=== PATIENT | female | born 2000 | race Two or more races ===

== ENCOUNTER 2019-01-19 14:01 | Emergency (ER) | payer SELFPAY ==
[~2019-01-19] VITALS: Ht 162.6 cm; Wt 80.0 kg
[~2019-01-19 14:01] MED LIST: HYDR-3240 PO
[2019-01-19] MEDS ORDERED: ACETAMINOPHEN 500 MG TABLET PO ONE (14:30)
[2019-01-19] MEDS ORDERED: SODIUM CHLORIDE FLUSH 10ML SYR IVF ONE (14:30)
[2019-01-19] MEDS ORDERED: SODIUM CHLORIDE 0.9% 1,000ML IVBOLUS ONE ×2 (14:30→16:00)
--- NOTE | 2019-01-19 14:48 | NUR ---
late entry for 1443 pt to room at this time
--- NOTE | 2019-01-19 14:51 | NUR ---
18 Y/O FEMALE PRESENTS TO ED WITH C/O FEVER. PT STATES "I HAD MY GALL BLADDER OUT YESTERDAY AND HAVE HAD FEVERS SINCE THIS MORNING. I HAVEN'T TAKEN ANYTHING FOR THEM. IT GOT TO 103." NO C/O N/V/D, TRAUMA. PT PLACED ON CONT PULSE OX, NIBP. FAMILY BEDSIDE.
[2019-01-19] MEDS ORDERED: MORPHINE SULFATE 4 MG/ML, 1ML ONE ×2 (15:12→18:03)
[2019-01-19] MEDS ORDERED: KETOROLAC 30 MG/1 ML ONE (15:12)
[2019-01-19 15:16] LABS: BASOPHILS # (AUTO) 0.01 x10^3/uL (0-0.3); BASOPHILS % (AUTO) 0 % (0-1); EOSINOPHILS % (AUTO) 0 % (1-7); LYMPHOCYTES % (AUTO) 6 % (22-44); MD NO; MEAN CORPUSCULAR HEMOGLOBIN 31.3 pg (27.0-34.8); MEAN CORPUSCULAR HGB CONC 33.7 g/dL (32.4-35.8); MEAN CORPUSCULAR VOLUME 92.9 fL (80-100); MEAN PLATELET VOLUME 9.7 fL (7.4-10.4); MONOCYTES # (AUTO) 0.57 x10^3/uL (0-1.4); MONOCYTES % (AUTO) 6 % (2-9); NEUTROPHILS # (AUTO) 8.78 x10^3/uL (1.8-8.0); NEUTROPHILS % (AUTO) 88 % (42-75); PLATELET COUNT 200 x10^3/uL (130-400); RED BLOOD COUNT 3.82 x10^6/uL (3.82-5.3); RED CELL DISTRIBUTION WIDTH 12.7 % (9.6-15.2)
[2019-01-19 15:26] LABS: ALANINE AMINOTRANSFERASE 74 U/L (12-78); ALBUMIN 3.2 g/dL (3.4-5.0); ANION GAP 10 mmol/L (5-15); CALCIUM 8.1 mg/dL (8.5-10.1); CHLORIDE 105 mmol/L (98-107); CREATININE 0.85 mg/dL (0.55-1.02)
[2019-01-19] MEDS ORDERED: morphine SULFATE 10 MG/ML, 1ML IVPush ONE (15:30)
[2019-01-19] MEDS ORDERED: KETOROLAC 30 MG/1 ML IVPush ONE (15:30)
[2019-01-19 15:31] LABS: ALKALINE PHOSPHATASE 138 U/L (45-117); BILIRUBIN,TOTAL 0.5 mg/dL (0.2-1.0)
--- NOTE | 2019-01-19 15:51 | NUR ---
PT STATES SHE FEELS BETTER. NO ACUTE DISTRESS NOTED. REASSESSED TEMP, 99.8. MOTHER BEDSIDE.
--- NOTE | 2019-01-19 16:08 | NUR ---
PT AMBULATORY WITH STEADY GAIT TO BATHROOM. PT PROVIDED SAMPLE. NO ACUTE DISTRESS NOTED.
[2019-01-19 16:25] LABS: MICROSCOPIC AUTO
[2019-01-19 16:27] LABS: CULTURE INDICATED? YES
--- NOTE | 2019-01-19 17:04 | NUR ---
pt ambulatory with steady gait to bathroom.
--- NOTE | 2019-01-19 17:09 | NUR ---
PT AMBULATORY WITH STEADY GAIT BACK FROM BATHROOM. FAMILY BEDSIDE. NO ACUTE DISTRESS NOTED.
--- NOTE | 2019-01-19 17:55 | NUR ---
pt states she is having abd pain and feeling "shaky" again. edmd bedside speaking with pt.
[2019-01-19] MEDS ORDERED: MORPHINE SULFATE 4 MG/ML, 1ML IVPush ONE (18:00)
--- NOTE | 2019-01-19 18:10 | NUR ---
MEDICATIONS ADMINISTERED PER ORDER. FAMILY BEDSIDE. NO ACUTE DISTRESS NOTED. NO NEEDS REQUESTED AT THIS TIME.
--- NOTE | 2019-01-19 18:22 | NUR ---
PT OUT OF ROOM TO IMAGING.
[2019-01-19] MEDS ORDERED: OMNIPAQUE 350 MG/ML, 100ML BOTTLE ONE (18:40)
--- NOTE | 2019-01-19 19:02 | NUR ---
bedside report to MARY Chao
--- NOTE | 2019-01-19 19:10 | NUR ---
REPORT FROM LEONOR HERNANDEZ. PT RESTING WITH MOM AT BEDSIDE. PT HAS NO NEEDS AT THIS TIME. CALL LIGHT IN REACH
[2019-01-19] MEDS ORDERED: HYDROcodone/APAP 5/325 TABLET PO ONE (19:30)
[2019-01-19] MEDS ORDERED: ACETAMINOPHEN 325 MG TABLET ONE (19:45)
[2019-01-19] MEDS ORDERED: HYDROcodone/APAP 5/325 TABLET ONE (19:45)
[2019-01-19 19:49] VITALS: BP 109/73
--- NOTE | 2019-01-19 19:51 | NUR ---
PT MEDICATED FOR PAIN AND FEVER. PT TO BE DISCHARGED.
[2019-01-19] MEDS ORDERED: ACETAMINOPHEN 325 MG TABLET PO ONE (20:00)
--- NOTE | 2019-01-19 20:08 | NUR ---
Patient given discharge instructions and they have confirmed that they understand the instructions. Patient ambulatory with steady gait.
== END 2019-01-19 20:10 | disposition home or self-care (01) ==
LOC: ED 20:00
DX: G89.18 Other acute postprocedural pain (principal); R10.9 Unspecified abdominal pain; R19.7 Diarrhea, unspecified; R11.0 Nausea; R50.9 Fever, unspecified; Z90.49 Acquired absence of other specified parts of digestive tract
CPT/HCPCS: 36415; 71275; 74177; 80053; 81001; 83605; 83690; 84145; 84703; 85025; 87040; 87086; 96361; 96374; 96375; 96376; 99284; J1885; J2270; J7030; Q9967